=== PATIENT | male | born 1945 | race Caucasian/White ===

== ENCOUNTER 2017-06-11 01:28 | Inpatient (IN) | payer MEDICARE, MEDICAID ==
[~2017-06-11] VITALS: Ht 177.8 cm; Wt 58.7 kg
[~2017-06-11 01:28] MED LIST: ATENPOW10; TRAZADONE; WELLBUTRIN; [UNRECOGNIZED DRUG - OTHER]
[2017-06-11 02:37] LABS: Basophils # (auto) 0.1 uL; Basophils % (auto) 0.5 % (0.0-2.0); Eosinophils # (auto) 0.2 uL; Eosinophils % (auto) 1.2 % (0.0-7.0); Hematocrit 42.9 % (41.0-53.0); Hemoglobin 14.1 g/dL (13.5-17.5); Lymphocytes # (auto) 1.7 uL; Lymphocytes % (auto) 11.9 % (10.0-50.0); Mean Corpuscular Hgb Conc. 32.8 g/dL (32.0-36.0); Mean Corpuscular Volume 91.6 fL (80.0-100.0); Monocytes # (auto) 1.5 uL; Monocytes % (auto) 10.6 % (0.0-12.0); Neutrophils % (auto) 75.8 % (37.0-80.0); Platelet Count (auto) 221 10^3/uL (140-450); Red Blood Cells 4.68 10^6/uL (4.5-5.90); Red Cell Distribution Width 15.3 % (11.8-14.3); White Blood Cell 14.6 10^3/uL (4.4-10.8)
[2017-06-11 02:57] LABS: Alanine Aminotransferase 31 U/L (16-61); Albumin 3.4 g/dL (3.4-5.0); Anion Gap 5 (5-15); Aspartate Aminotransferase 17 U/L (15-37); BUN/Creatinine Ratio 21.5; Blood Urea Nitrogen 23 mg/dL (7-18); Calcium 8.8 mg/dL (8.5-10.1); Carbon Dioxide 29 mmol/L (21-32); Chloride 106 mmol/L (98-107); GFR African American 88 mL/min; GFR Non-African American 72 mL/min; Glucose 99 mg/dL (74-106); Magnesium 2.2 mg/dL (1.6-2.6); Potassium 4.6 mmol/L (3.5-5.1); Sodium 140 mmol/L (136-145)
[2017-06-11 03:02] LABS: Alkaline Phosphatase 112 U/L (45-117); Bilirubin, Total 0.5 mg/dL (0.2-1.0); Total Protein 6.7 g/dL (6.4-8.2)
[2017-06-11] MEDS ORDERED: FUROSEMIDE 20 MG/2 ML VIAL IV ONE (04:15)
[2017-06-11] MEDS ORDERED: cefTRIAXone 1GM/10ml IVPUSH 10 ML IV ONE (04:15)
[2017-06-11] MEDS ORDERED: cloNIDine HCL 0.1 MG TAB PO ONE (05:30)
[2017-06-11] MEDS ORDERED: MORPHINE SULFATE 4 MG/ML SYR/VIAL IV PRN (06:00)
[2017-06-11] MEDS ORDERED: HYDROcodone-ACET 5/325MG TAB PO PRN (06:00)
[2017-06-11] MEDS ORDERED: ACETAMINOPHEN 500 MG TAB PO PRN (06:00)
[2017-06-11] MEDS ORDERED: ONDANSETRON HCL 4 MG/2 ML VIAL IV PRN (06:00)
[2017-06-11] MEDS: ALBUTEROL SULF 2.5 MG/0.5ML(0.5%) NEB SOLN NEB SCH ×3 (06:40→19:16)
[2017-06-11] MEDS: IPRATROPIUM BROM 0.5 MG/2.5ML INH SOL NEB SCH ×3 (06:40→19:16)
[2017-06-11 12:53] LABS: Alcohol, Urine < 3.0 mg/dL (0-5); Amphetamine Screen, Urine NEGATIVE (NEGATIVE); Barbiturate Scree,Urine NEGATIVE (NEGATIVE); Benzodiazephine Screen, Urine NEGATIVE (NEGATIVE); Cannabinoid Screen, Urine POSITIVE (NEGATIVE); Cocaine Screen, Urine NEGATIVE (NEGATIVE); Opiate Scree,Urine NEGATIVE (NEGATIVE); Phencyclidine Screen, Urine NEGATIVE (NEGATIVE)
[2017-06-11 13:10] LABS: Urine Bacteria NONE SEEN /hpf (None Seen); Urine Blood Negative /uL (Negative); Urine Specific Gravity 1.012 (1.001-1.035); Urine WBC <1 /hpf (0 - 3)
[2017-06-11] MEDS ORDERED: NICOTINE 21MG/24 HR TOPICAL PATCH TD ONE (16:00)
[2017-06-11 18:35] VITALS: BP 147/101
[2017-06-11 20:00] VITALS: BP 148/88
[2017-06-11 21:26] VITALS: BP 147/101
[2017-06-11 22:00] VITALS: BP 148/88
[2017-06-11] MEDS: METOPROLOL TARTRATE 25 MG TAB PO SCH (22:03)
[2017-06-12] MEDS: IPRATROPIUM BROM 0.5 MG/2.5ML INH SOL NEB SCH ×4 (00:44→18:21)
[2017-06-12] MEDS: ALBUTEROL SULF 2.5 MG/0.5ML(0.5%) NEB SOLN NEB SCH ×4 (00:44→18:21)
[2017-06-12] MEDS ORDERED: ARIP1TAB7 PO (05:38)
[2017-06-12] MEDS ORDERED: LISI-646 PO (05:38)
[2017-06-12] MEDS ORDERED: ATOR10TA PO (05:38)
[2017-06-12] MEDS ORDERED: ASPI81CH43 PO (05:38)
[2017-06-12] MEDS ORDERED: BUPR100T14 PO (05:38)
[2017-06-12] MEDS ORDERED: OMEP20CA74 OR (05:38)
[2017-06-12] MEDS ORDERED: POTA10TA51 PO (05:38)
[2017-06-12] MEDS ORDERED: TRAZ100T2 PO (05:38)
[2017-06-12] MEDS ORDERED: METO-159 PO (05:38)
[2017-06-12] MEDS ORDERED: OLAN10TA29 PO (05:38)
[2017-06-12] MEDS ORDERED: HYDR-4683 PO (05:38)
[2017-06-12 06:00] VITALS: BP 158/96
[2017-06-12 06:19] LABS: Basophils # (auto) 0.1 uL; Basophils % (auto) 0.6 % (0.0-2.0); Eosinophils # (auto) 0.2 uL; Eosinophils % (auto) 1.7 % (0.0-7.0); Hematocrit 43.5 % (41.0-53.0); Hemoglobin 14.6 g/dL (13.5-17.5); Lymphocytes # (auto) 0.9 uL; Mean Corpuscular Hemoglobin 30.8 pg (28.0-32.0); Mean Corpuscular Hgb Conc. 33.5 g/dL (32.0-36.0); Monocytes # (auto) 1.2 uL; Monocytes % (auto) 10.7 % (0.0-12.0); Neutrophils # (auto) 8.6 uL; Nucleated Red Blood Cells % 0.1 %; Platelet Count (auto) 202 10^3/uL (140-450); Red Blood Cells 4.73 10^6/uL (4.5-5.90); Red Cell Distribution Width 15.4 % (11.8-14.3); White Blood Cell 10.8 10^3/uL (4.4-10.8)
[2017-06-12 06:37] LABS: BUN/Creatinine Ratio 24.8; Calcium 8.9 mg/dL (8.5-10.1); Potassium 4.2 mmol/L (3.5-5.1)
[2017-06-12 09:00] VITALS: BP 154/84
[2017-06-12] MEDS ORDERED: guaiFENesin 200 MG/10 ML UD PO PRN (10:45)
[2017-06-12] MEDS: ENOXAPARIN SOD 40 MG/0.4 ML SYRINGE SC SCH (11:44)
[2017-06-12] MEDS: METOPROLOL TARTRATE 25 MG TAB PO SCH (11:45)
[2017-06-12] MEDS: FAMOTIDINE 20 MG TAB PO SCH (11:45)
[2017-06-12] MEDS: NICOTINE 21MG/24 HR TOPICAL PATCH TD SCH (11:46)
[2017-06-12] MEDS ORDERED: ASPirin-EC 81 mg tab PO ONE (12:00)
[2017-06-12] MEDS ORDERED: LISINOPRIL 20 MG TAB PO ONE (12:00)
[2017-06-12 13:08] VITALS: BP 179/96
[2017-06-12 17:00] VITALS: BP 186/92
[2017-06-12 17:45] LABS: Free T4 (Free Thyroxine) 1.44 ng/dL (0.89-1.76)
[2017-06-12 17:46] LABS: Folate (Folic Acid) 14.27 ng/mL (5.38-24)
[2017-06-12] MEDS ORDERED: LABETALOL HCL 5 MG/ML ML 20ML VIAL IV PRN (18:15)
[2017-06-12] MEDS: METOPROLOL TARTRATE 50 MG TAB PO SCH (21:47)
[2017-06-12 22:00] VITALS: BP 158/83
[2017-06-12] MEDS ORDERED: METOPROLOL TARTRATE 25 MG TAB PO SCH (22:00)
[2017-06-12] MEDS ORDERED: ATORVASTATIN 20 MG TAB PO SCH (22:00)
[2017-06-13] MEDS: IPRATROPIUM BROM 0.5 MG/2.5ML INH SOL NEB SCH ×3 (01:15→11:16)
[2017-06-13] MEDS: ALBUTEROL SULF 2.5 MG/0.5ML(0.5%) NEB SOLN NEB SCH ×3 (01:15→11:16)
[2017-06-13 05:08] VITALS: BP 153/89
[2017-06-13 07:01] LABS: Cholesterol 129 mg/dL (< 200); HDL Cholesterol 49 mg/dL (40-59); LDL Cholesterol 78 mg/dL (< 100); Triglycerides 69 mg/dL (< 150)
[2017-06-13 09:00] VITALS: BP 148/85
[2017-06-13] MEDS: NICOTINE 21MG/24 HR TOPICAL PATCH TD SCH (09:59)
[2017-06-13] MEDS: ENOXAPARIN SOD 40 MG/0.4 ML SYRINGE SC SCH (09:59)
[2017-06-13] MEDS: METOPROLOL TARTRATE 50 MG TAB PO SCH (10:00)
[2017-06-13] MEDS: FAMOTIDINE 20 MG TAB PO SCH (10:00)
[2017-06-13] MEDS ORDERED: LISINOPRIL 20 MG TAB PO SCH (10:00)
[2017-06-13] MEDS ORDERED: ASPirin-EC 81 mg tab PO SCH (10:00)
[2017-06-13 12:45] VITALS: BP 148/85
[2017-06-13 13:00] VITALS: BP 153/92
== END 2017-06-13 13:55 | disposition home health service (06) | DRG 194 ==
LOC: EDBD 01:28 → ER 01:31 → OVERFLOW 01:32 → CENTRAL 18:36
PROVIDERS: ADMIT Nurse Practitioner Family; ATTEND Internal Medicine
DX: I11.0 Hypertensive heart disease with heart failure (principal); J96.11 Chronic respiratory failure with hypoxia; J44.1 Chronic obstructive pulmonary disease with (acute) exacerbation; F03.90 Unspecified dementia, unspecified severity, without behavioral disturbance, psychotic disturbance, mood disturbance, and anxiety; Z99.81 Dependence on supplemental oxygen; I50.43 Acute on chronic combined systolic (congestive) and diastolic (congestive) heart failure; I50.9 Heart failure, unspecified; D72.829 Elevated white blood cell count, unspecified; W18.39XA Other fall on same level, initial encounter; F15.10 Other stimulant abuse, uncomplicated; F12.10 Cannabis abuse, uncomplicated; E78.5 Hyperlipidemia, unspecified; F17.210 Nicotine dependence, cigarettes, uncomplicated; R29.6 Repeated falls; Z82.5 Family history of asthma and other chronic lower respiratory diseases; Z90.49 Acquired absence of other specified parts of digestive tract; Z79.82 Long term (current) use of aspirin; Z79.899 Other long term (current) drug therapy; Y93.89 Activity, other specified; Y99.8 Other external cause status; Y92.092 Bedroom in other non-institutional residence as the place of occurrence of the external cause; Z71.6 Tobacco abuse counseling
CPT/HCPCS: 36415; 70450; 71045; 72100; 73502; 80048; 80053; 80061; 80307; 81001; 82607; 82746; 83735; 83880; 84439; 84443; 84484; 85025; 87040; 93005; 94640; 95819; 96374; 96375; 97163

== ENCOUNTER 2017-06-20 11:51 | Inpatient (IN) | payer MEDICARE, MEDICAID ==
[~2017-06-20] VITALS: Ht 193 cm; Wt 62.0 kg
[~2017-06-20 11:51] MED LIST changes: +ARIP1TAB7 PO; +ASPI81CH43 PO; -ATENPOW10; +ATOR10TA PO; +BUPR100T14 PO; +HYDR-4683 PO; +LISI-646 PO; +METO-159 PO; +OLAN10TA29 PO; +OMEP20CA74 OR; +POTA10TA51 PO; +TRAZ100T2 PO; -TRAZADONE; -WELLBUTRIN; -[UNRECOGNIZED DRUG - OTHER]
[2017-06-20] MEDS ORDERED: SODIUM CHLORIDE 0.9% 1,000 ML IV ONE (12:06)
[2017-06-20] MEDS ORDERED: IPRATROPIUM BROM 0.5 MG/2.5ML INH SOL HHN ONE (12:15)
[2017-06-20] MEDS ORDERED: methylPREDNISolone SOD SUCC 125 MG/2 ML VL IV ONE (12:15)
[2017-06-20] MEDS ORDERED: ALBUTEROL SULF 2.5 MG/0.5ML(0.5%) NEB SOLN HHN ONE (12:15)
[2017-06-20 13:30] LABS: Basophils # (auto) 0.1 uL; Basophils % (auto) 1.2 % (0.0-2.0); Eosinophils # (auto) 0.2 uL; Hematocrit 42.9 % (41.0-53.0); Hemoglobin 13.8 g/dL (13.5-17.5); Lymphocytes # (auto) 2.6 uL; Lymphocytes % (auto) 25.7 % (10.0-50.0); Mean Corpuscular Hemoglobin 29.6 pg (28.0-32.0); Mean Corpuscular Hgb Conc. 32.1 g/dL (32.0-36.0); Mean Corpuscular Volume 92.3 fL (80.0-100.0); Monocytes # (auto) 1.3 uL; Monocytes % (auto) 12.5 % (0.0-12.0); Neutrophils # (auto) 5.9 uL; Neutrophils % (auto) 58.6 % (37.0-80.0); Platelet Count (auto) 319 10^3/uL (140-450); Red Blood Cells 4.65 10^6/uL (4.5-5.90); Red Cell Distribution Width 15.3 % (11.8-14.3); White Blood Cell 10.1 10^3/uL (4.4-10.8)
[2017-06-20 13:52] LABS: Alanine Aminotransferase 24 U/L (16-61); Albumin 3.4 g/dL (3.4-5.0); Alkaline Phosphatase 137 U/L (45-117); Anion Gap 4 (5-15); Aspartate Aminotransferase 17 U/L (15-37); Bilirubin, Total 0.3 mg/dL (0.2-1.0); Blood Urea Nitrogen 25 mg/dL (7-18); Calcium 8.3 mg/dL (8.5-10.1); Carbon Dioxide 27 mmol/L (21-32); Chloride 107 mmol/L (98-107); GFR African American 78 mL/min; GFR Non-African American 64 mL/min; Glucose 62 mg/dL (74-106); Magnesium 2.3 mg/dL (1.6-2.6); Potassium 4.9 mmol/L (3.5-5.1); Sodium 138 mmol/L (136-145); Total Protein 6.8 g/dL (6.4-8.2)
[2017-06-20] MEDS ORDERED: ACETAMINOPHEN 500 MG TAB PO PRN (14:15)
[2017-06-20] MEDS ORDERED: HYDROcodone-ACET 5/325MG TAB PO PRN (14:15)
[2017-06-20] MEDS ORDERED: NITROGLYCERIN 0.4 MG SL TAB SL PRN (14:15)
[2017-06-20] MEDS ORDERED: OSELTAMIVIR 75 MG CAP PO ONE (14:15)
[2017-06-20] MEDS ORDERED: PROMETHAZINE HCL 25 MG/ML 1ML IV PRN (14:15)
[2017-06-20] MEDS ORDERED: LORazepam 0.5 MG TAB PO PRN (14:15)
[2017-06-20] MEDS ORDERED: ALBUTEROL SULF 2.5 MG/0.5ML(0.5%) NEB SOLN NEB PRN (14:15)
[2017-06-20] MEDS ORDERED: cefTRIAXone 1GM/10ml IVPUSH 10 ML IV ONE (14:15)
[2017-06-20] MEDS ORDERED: TEMAZEPAM 15 MG CAP PO PRN (14:15)
[2017-06-20] MEDS ORDERED: LACTULOSE 20Gm/30ML SOLN PO PRN (14:15)
[2017-06-20] MEDS ORDERED: MORPHINE SULF INJ 2 MG/ML SYRINGE 1ML IV PRN ×2 (14:15)
[2017-06-20 14:35] VITALS: BP 146/78
[2017-06-20] MEDS: SODIUM CHLORIDE 0.9% 1,000 ML IV SCH (14:45)
[2017-06-20] MEDS: ENOXAPARIN SOD 40 MG/0.4 ML SYRINGE SC SCH (14:45)
[2017-06-20 15:04] LABS: Folate (Folic Acid) 17.34 ng/mL (5.38-24)
[2017-06-20 16:15] LABS: Urine Bacteria FEW /hpf (None Seen); Urine Blood Negative /uL (Negative); Urine Specific Gravity 1.015 (1.001-1.035); Urine WBC 2 /hpf (0 - 3)
[2017-06-20] MEDS: ALBUTEROL SULF 2.5 MG/0.5ML(0.5%) NEB SOLN NEB SCH (18:21)
[2017-06-20] MEDS: IPRATROPIUM BROM 0.5 MG/2.5ML INH SOL NEB SCH (18:21)
[2017-06-20 20:05] VITALS: BP 142/98
[2017-06-20 22:00] VITALS: BP 142/98
[2017-06-20] MEDS ORDERED: OMEPRAZOLE 20MG/10ML ORAL SUSP PO SCH (22:00)
[2017-06-20] MEDS: ATORVASTATIN 20 MG TAB PO SCH (22:17)
[2017-06-20] MEDS: traZODone HCL 50 MG TAB PO SCH (22:17)
[2017-06-20] MEDS: OSELTAMIVIR 75 MG CAP PO SCH (22:18)
[2017-06-20] MEDS: METOPROLOL TARTRATE 50 MG TAB PO SCH (22:18)
[2017-06-20] MEDS: buPROPion HCL 100 MG TAB PO SCH (22:18)
[2017-06-20] MEDS: PANTOPRAZOLE 40 MG TAB PO SCH (22:18)
[2017-06-20] MEDS: methylPREDNISolone SOD SUCC 40 MG/ML VL IV SCH (23:52)
[2017-06-21] MEDS: SODIUM CHLORIDE 0.9% 1,000 ML IV SCH ×3 (00:14→20:14)
[2017-06-21] MEDS: IPRATROPIUM BROM 0.5 MG/2.5ML INH SOL NEB SCH ×4 (00:37→19:42)
[2017-06-21] MEDS: ALBUTEROL SULF 2.5 MG/0.5ML(0.5%) NEB SOLN NEB SCH ×4 (00:37→19:42)
[2017-06-21 05:00] VITALS: BP 152/83
[2017-06-21] MEDS: buPROPion HCL 100 MG TAB PO SCH ×3 (05:47→21:31)
[2017-06-21 07:53] LABS: Cholesterol 113 mg/dL (< 200); HDL Cholesterol 45 mg/dL (40-59); LDL Cholesterol 72 mg/dL (< 100); Triglycerides 57 mg/dL (< 150)
[2017-06-21 08:34] VITALS: BP 152/73
[2017-06-21] MEDS: cefTRIAXone 1GM/10ml IVPUSH 10 ML IV SCH (09:35)
[2017-06-21] MEDS ORDERED: OLANZAPINE 20 MG PO SCH (10:00)
[2017-06-21] MEDS ORDERED: PATIENTS OWN MEDICATION (Potassium Chloride (Potassium Chloride Cr) 10 MEQ) PO SCH (10:00)
[2017-06-21] MEDS: OSELTAMIVIR 75 MG CAP PO SCH (10:00)
[2017-06-21] MEDS: ABILIFY 30 MG PO SCH (10:00)
[2017-06-21] MEDS ORDERED: ASPirin 81 mg TAB PO SCH (10:00)
[2017-06-21] MEDS: ENOXAPARIN SOD 40 MG/0.4 ML SYRINGE SC SCH (10:09)
[2017-06-21] MEDS: ASPirin 81 mg TAB PO SCH (10:09)
[2017-06-21] MEDS: OLANZapine 5 MG TAB PO SCH (10:09)
[2017-06-21] MEDS: POTASSIUM CHL 10 Meq TABLET PO SCH (10:09)
[2017-06-21] MEDS: PANTOPRAZOLE 40 MG TAB PO SCH ×2 (10:09→21:31)
[2017-06-21] MEDS: METOPROLOL TARTRATE 50 MG TAB PO SCH ×2 (10:10→21:30)
[2017-06-21] MEDS: LISINOPRIL 20 MG TAB PO SCH (10:10)
[2017-06-21 13:00] VITALS: BP 141/76
[2017-06-21] MEDS: methylPREDNISolone SOD SUCC 40 MG/ML VL IV SCH ×2 (13:07→23:39)
[2017-06-21 15:00] VITALS: BP 148/86
[2017-06-21] MEDS ORDERED: LORazepam 2MG/ML-1ML VIAL IV PRN (15:15)
[2017-06-21 15:27] VITALS: BP 148/86
[2017-06-21] MEDS ORDERED: diphenhdrAMINE HCL 50 MG/1 ML VL IV PRN (16:45)
[2017-06-21] MEDS ORDERED: diphenhdrAMINE HCL 50 MG/1 ML VL IV ONE (16:45)
[2017-06-21] MEDS ORDERED: HALOPERIDOL LACTATE 5 MG/ML INJ VIAL IM PRN (20:45)
[2017-06-21 21:30] VITALS: BP 156/90
[2017-06-21] MEDS: traZODone HCL 50 MG TAB PO SCH (21:30)
[2017-06-21] MEDS: ATORVASTATIN 20 MG TAB PO SCH (21:30)
[2017-06-22] MEDS: ALBUTEROL SULF 2.5 MG/0.5ML(0.5%) NEB SOLN NEB SCH ×3 (01:10→12:08)
[2017-06-22] MEDS: IPRATROPIUM BROM 0.5 MG/2.5ML INH SOL NEB SCH ×3 (01:10→12:08)
[2017-06-22 05:11] VITALS: BP 150/87
[2017-06-22] MEDS: buPROPion HCL 100 MG TAB PO SCH ×2 (06:00→14:00)
[2017-06-22] MEDS: SODIUM CHLORIDE 0.9% 1,000 ML IV SCH (06:14)
[2017-06-22 08:00] VITALS: BP 113/61
[2017-06-22] MEDS: POTASSIUM CHL 10 Meq TABLET PO SCH (09:39)
[2017-06-22] MEDS: LISINOPRIL 20 MG TAB PO SCH (09:39)
[2017-06-22] MEDS: ENOXAPARIN SOD 40 MG/0.4 ML SYRINGE SC SCH (09:39)
[2017-06-22] MEDS: ASPirin 81 mg TAB PO SCH (09:40)
[2017-06-22] MEDS: PANTOPRAZOLE 40 MG TAB PO SCH (09:40)
[2017-06-22] MEDS: METOPROLOL TARTRATE 50 MG TAB PO SCH (09:40)
[2017-06-22] MEDS: OLANZapine 5 MG TAB PO SCH (09:40)
[2017-06-22] MEDS: cefTRIAXone 1GM/10ml IVPUSH 10 ML IV SCH (09:41)
[2017-06-22] MEDS: ABILIFY 30 MG PO SCH (09:41)
[2017-06-22] MEDS: methylPREDNISolone SOD SUCC 40 MG/ML VL IV SCH (12:22)
== END 2017-06-22 18:21 | disposition home or self-care (01) | DRG 45 ==
LOC: ER 11:51 → TELE 11:52 → TELE-CENTR 19:35 → CENTRAL 06-21 16:03
PROVIDERS: ADMIT Internal Medicine; ATTEND Internal Medicine
DX: I63.9 Cerebral infarction, unspecified (principal); G93.41 Metabolic encephalopathy; N18.3 Chronic kidney disease, stage 3 (moderate); J44.1 Chronic obstructive pulmonary disease with (acute) exacerbation; E78.00 Pure hypercholesterolemia, unspecified; E78.5 Hyperlipidemia, unspecified; F17.210 Nicotine dependence, cigarettes, uncomplicated; I12.9 Hypertensive chronic kidney disease with stage 1 through stage 4 chronic kidney disease, or unspecified chronic kidney disease; R29.6 Repeated falls; R26.89 Other abnormalities of gait and mobility; G47.00 Insomnia, unspecified; F41.9 Anxiety disorder, unspecified; E16.2 Hypoglycemia, unspecified; I25.10 Atherosclerotic heart disease of native coronary artery without angina pectoris; I25.2 Old myocardial infarction; Z82.49 Family history of ischemic heart disease and other diseases of the circulatory system; Z82.5 Family history of asthma and other chronic lower respiratory diseases; Z79.899 Other long term (current) drug therapy; Z79.82 Long term (current) use of aspirin; Z90.49 Acquired absence of other specified parts of digestive tract
CPT/HCPCS: 36415; 70450; 71045; 80053; 80061; 81001; 82550; 82607; 82746; 82962; 83605; 83735; 83880; 84443; 84484; 85025; 85652; 87040; 87081; 87086; 87400; 93005; 93306; 93886; 94640; 94644; 96361; 96372; 96374; 96375

== ENCOUNTER 2017-06-24 11:11 | Emergency (ER) | payer MEDICARE, MEDICAID ==
[~2017-06-24] VITALS: Ht 180.3 cm; Wt 61.2 kg
[2017-06-24 11:18] VITALS: BP 156/84
== END 2017-06-24 14:48 | disposition home or self-care (01) ==
LOC: EDBD 11:11 → ER 11:11
DX: M25.551 Pain in right hip (principal); I25.2 Old myocardial infarction; I10 Essential (primary) hypertension; E78.5 Hyperlipidemia, unspecified; F17.210 Nicotine dependence, cigarettes, uncomplicated; Z86.73 Personal history of transient ischemic attack (TIA), and cerebral infarction without residual deficits; Z79.899 Other long term (current) drug therapy
CPT/HCPCS: 73502

== ENCOUNTER 2017-11-26 23:17 | Emergency (ER) | payer MEDICARE, MEDICAID ==
[~2017-11-26] VITALS: Ht 190.5 cm; Wt 61.2 kg
[2017-11-26 23:20] VITALS: BP 190/81
[2017-11-26] MEDS ORDERED: ALBUTEROL SULF 2.5 MG/0.5ML(0.5%) NEB SOLN NEB ONE (23:30)
[2017-11-26] MEDS ORDERED: methylPREDNISolone SOD SUCC 125 MG/2 ML VL IV ONE (23:30)
[2017-11-26] MEDS ORDERED: IPRATROPIUM BROM 0.5 MG/2.5ML INH SOL NEB ONE (23:30)
[2017-11-27 01:13] LABS: Basophils # (auto) 0 uL; Basophils % (auto) 0.5 % (0.0-2.0); Eosinophils # (auto) 0.2 uL; Eosinophils % (auto) 2.2 % (0.0-7.0); Hematocrit 44.1 % (41.0-53.0); Hemoglobin 14.8 g/dL (13.5-17.5); Lymphocytes # (auto) 2.4 uL; Lymphocytes % (auto) 26.7 % (10.0-50.0); Mean Corpuscular Hemoglobin 30.4 pg (28.0-32.0); Mean Corpuscular Hgb Conc. 33.7 g/dL (32.0-36.0); Mean Corpuscular Volume 90.4 fL (80.0-100.0); Monocytes # (auto) 1.1 uL; Monocytes % (auto) 11.8 % (0.0-12.0); Neutrophils # (auto) 5.2 uL; Neutrophils % (auto) 58.8 % (37.0-80.0); Platelet Count (auto) 205 10^3/uL (140-450); Red Blood Cells 4.87 10^6/uL (4.5-5.90); Red Cell Distribution Width 15.9 % (11.8-14.3); White Blood Cell 8.9 10^3/uL (4.4-10.8)
[2017-11-27 01:28] LABS: INR 0.95 (0.9-1.15); Partial Thromboplastin Time 24.4 sec (23.78-33.04); Prothrombin Time 10.2 sec (9.27-12.13)
[2017-11-27 01:38] LABS: Alanine Aminotransferase 28 U/L (16-61); Albumin 3.6 g/dL (3.4-5.0); Anion Gap 8 (5-15); Aspartate Aminotransferase 17 U/L (15-37); BUN/Creatinine Ratio 18.6; Blood Urea Nitrogen 22 mg/dL (7-18); Calcium 8.4 mg/dL (8.5-10.1); Carbon Dioxide 29 mmol/L (21-32); Chloride 108 mmol/L (98-107); GFR African American 78 mL/min; GFR Non-African American 64 mL/min; Glucose 98 mg/dL (74-106); Magnesium 2.2 mg/dL (1.6-2.6); Potassium 4.3 mmol/L (3.5-5.1); Sodium 145 mmol/L (136-145)
[2017-11-27 01:54] LABS: Alkaline Phosphatase 105 U/L (45-117); Bilirubin, Total 0.3 mg/dL (0.2-1.0); Total Protein 6.8 g/dL (6.4-8.2)
== END 2017-11-27 05:53 | disposition left against medical advice (07) ==
LOC: EDUNIT# 23:17 → ER 23:32
DX: R06.02 Shortness of breath (principal); Z53.21 Procedure and treatment not carried out due to patient leaving prior to being seen by health care provider
CPT/HCPCS: 36415; 36600; 71045; 80053; 82805; 83735; 83880; 84484; 85025; 85610; 85730; 94640